=== PATIENT | male | born 1945 | race Caucasian/White ===

== ENCOUNTER 2016-07-27 07:06 | Emergency (ER) | payer MEDICARE ==
[~2016-07-27] VITALS: Ht 180.3 cm; Wt 102.7 kg
[~2016-07-27 07:06] MED LIST: DICL75 PO; GLIM1 OR; HYDR-3533 PO; METF-324 PO; QUIN20 PO
[2016-07-27 07:10] VITALS: BP 151/79; PULSE 84; RESP 17; TEMP 98.4; O2SAT 100
[2016-07-27] MEDS ORDERED: METF1000 PO (07:25)
[2016-07-27] MEDS ORDERED: DAPA1TAB3 PO (07:25)
[2016-07-27] MEDS ORDERED: ACCU10TA2 PO (07:25)
[2016-07-27] MEDS ORDERED: PIPERACIL-TAZO 4.5 GM PREMIX 100 ML IV STA (07:59)
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
[2016-07-27 08:20] VITALS: O2SAT 98
[2016-07-27 08:30] VITALS: BP 177/88; PULSE 63; RESP 18; O2SAT 97
[2016-07-27 08:43] LABS: AUTOMATED NEUTROPHIL # 3.1 TH/MM3 (1.8-7.7); BASOPHIL % 0.5 % (0.0-2.0); EOSINOPHIL # 0.2 TH/MM3 (0-0.4); HEMATOCRIT 45.4 % (39.0-51.0); HEMO FLAGS DIFF FINAL; LYMPH % 30.1 % (9.0-44.0); LYMPHOCYTE # 1.6 TH/MM3 (1.0-4.8); MEAN CELL VOLUME 89.7 FL (80.0-100.0); MEAN CORPUSCULAR HEMOGLOBIN 29.7 PG (27.0-34.0); MEAN CORPUSCULAR HGB CONC 33.1 % (32.0-36.0); MONO % 9.2 % (0.0-8.0); NEUT % 57.2 % (16.0-70.0); PLATELET COUNT 137 TH/MM3 (150-450); RED BLOOD COUNT 5.06 MIL/MM3 (4.50-5.90); RED CELL DISTRIBUTION WIDTH 12.6 % (11.6-17.2); WHITE BLOOD COUNT 5.4 TH/MM3 (4.0-11.0)
[2016-07-27 08:50] LABS: CHLORIDE 107 MEQ/L (98-107); POTASSIUM 4.2 MEQ/L (3.5-5.1); SODIUM (NA) 139 MEQ/L (136-145)
[2016-07-27 08:54] LABS: ANION GAP 10 MEQ/L (5-15); BICARBONATE 22.4 MEQ/L (21.0-32.0); BLOOD UREA NITROGEN 24 MG/DL (7-18)
[2016-07-27 08:57] LABS: ALT (GPT) 43 U/L (12-78); AST (GOT) 26 U/L (15-37); GLOMERULAR FILTRATION RATE 54 ML/MIN (>89)
[2016-07-27 08:59] LABS: TOTAL BILIRUBIN ADULT 0.5 MG/DL (0.2-1.0)
[2016-07-27 09:00] LABS: ALKALINE PHOSPHATASE 79 U/L (45-117)
[2016-07-27] MEDS ORDERED: INSULIN HUMAN REGULAR 1,000 UNITS/10 ML VIAL IV PUSH ONE (09:15)
[2016-07-27] MEDS ORDERED: CEPH-461 PO (09:24)
[2016-07-27 10:38] LABS: LACTIC ACID GHOST NOT REPORTABLE
== END 2016-07-27 09:40 | disposition home or self-care (01) ==
LOC: PHED 07:06
DX: L03.119 Cellulitis of unspecified part of limb (principal); E11.9 Type 2 diabetes mellitus without complications; Z79.84 Long term (current) use of oral hypoglycemic drugs
CPT/HCPCS: 80053; 83605; 85025; 87040; 96365; 96375; 99284; J1815; J2543

== ENCOUNTER 2017-06-23 17:44 | Emergency (ER) | payer MEDICARE ==
[~2017-06-23] VITALS: Ht 181.6 cm; Wt 103.0 kg
[~2017-06-23 17:44] MED LIST changes: +ACCU10TA2 PO; +CEPH-461 PO; +DAPA1TAB3 PO; -DICL75 PO; -GLIM1 OR; -HYDR-3533 PO; -METF-324 PO; +METF1000 PO; -QUIN20 PO
[2017-06-23 17:48] VITALS: BP 162/77; PULSE 76; RESP 18; TEMP 97.6; O2SAT 95
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
--- NOTE | 2017-06-23 18:51 | RADRPT ---
EXAM DATE/TIME: 06/23/2017 18:27 [facility] COMPARISON: No previous studies available for comparison. INDICATIONS : Left side rib pain after coughing. MEDICAL HISTORY : None. SURGICAL HISTORY : None. ENCOUNTER: Initial ACUITY: 1 week PAIN SCORE: 9/10 LOCATION: Left ribs FINDINGS: Multiple views of the left ribs were performed. There is no evidence of displaced fracture. No dest ructive lesions or areas of periosteal thickening are seen. Expiratory view of the chest is negative for pneumothorax. The mediastinal structures are midline. CONCLUSION: Unremarakble examination of the left ribs and chest. Jeferson Lay MD on June 23, 2017 at 18:49 Board Certified Radiologist. This report was verified electronically.
[2017-06-23] MEDS ORDERED: MOBI7.5T PO (19:02)
== END 2017-06-23 19:09 | disposition home or self-care (01) ==
LOC: PHEFT 17:44
DX: M94.0 Chondrocostal junction syndrome [Tietze] (principal); E11.9 Type 2 diabetes mellitus without complications; B19.20 Unspecified viral hepatitis C without hepatic coma; I10 Essential (primary) hypertension
CPT/HCPCS: 71101; 94150; 99283